=== PATIENT | female | born 1960 | race African-American/Black ===

== ENCOUNTER 2021-12-14 13:19 | Emergency (ER) | payer OTHER ==
[2021-12-14] MEDS ORDERED: ACETAMINOPHEN 500 MG TABLET (FP) PO ONE (13:28)
[2021-12-14] MEDS ORDERED: ACETAMINOPHEN 325 MG TABLET (FP) ONE (13:30)
[2021-12-14 13:36] VITALS: BP 124/79; PULSE 86; TEMP 97.9; BMI 45.1
== END 2021-12-14 14:30 | disposition home or self-care (01) ==
LOC: JER 13:19 → JERFT 13:19
DX: L03.031 Cellulitis of right toe (principal)
CPT/HCPCS: 73660-TC-FY; 99284-25